=== PATIENT | male | born 1970 | race Caucasian/White ===

== ENCOUNTER 2016-12-07 23:02 | Emergency (ER) | payer OTHER ==
[2016-12-07] MEDS ORDERED: Tetracaine HCl 0.5% Ophth Soln 2 ML Bottle ONE (23:52)
[2016-12-08] MEDS ORDERED: Fluorescein Opthalmic Strip ONE (00:28)
== END 2016-12-08 01:12 | disposition home or self-care (01) ==
LOC: NAV ERS 23:02
DX: S05.01XA Injury of conjunctiva and corneal abrasion without foreign body, right eye, initial encounter (principal); E11.9 Type 2 diabetes mellitus without complications; E78.5 Hyperlipidemia, unspecified; I10 Essential (primary) hypertension; F32.9 Major depressive disorder, single episode, unspecified; F17.210 Nicotine dependence, cigarettes, uncomplicated; Z79.4 Long term (current) use of insulin; Z79.899 Other long term (current) drug therapy; X58.XXXA Exposure to other specified factors, initial encounter
CPT/HCPCS: 99001; 99282

== ENCOUNTER 2023-08-11 15:00 | Emergency (ER) | payer OTHER ==
[2023-08-11] MEDS ORDERED: Fluorescein Opthalmic Strip ONE (15:14)
[2023-08-11] MEDS ORDERED: Tetracaine 0.5% PF 4 ML BOT ONE (15:15)
[2023-08-11] MEDS ORDERED: Ketorolac Tromethamine 30 MG (1 mL) VIAL ONE (15:44)
== END 2023-08-11 15:56 | disposition home or self-care (01) ==
LOC: NAV ERS 15:00
DX: T15.02XA Foreign body in cornea, left eye, initial encounter (principal); E11.9 Type 2 diabetes mellitus without complications; I10 Essential (primary) hypertension; F17.210 Nicotine dependence, cigarettes, uncomplicated; W31.1XXA Contact with metalworking machines, initial encounter; Z79.899 Other long term (current) drug therapy
CPT/HCPCS: 96372; 99283; J1885